=== PATIENT | female | born 1985 | race Two or more races ===

== ENCOUNTER 2024-07-18 17:28 | Emergency (ER) | payer MEDICAID, SELFPAY ==
[2024-07-18 17:29] VITALS: BMI 27.2
[2024-07-18 18:51] VITALS: BP 150/89; PULSE 71; RESP 17; TEMP 36.7; O2SAT 96
--- NOTE | 2024-07-18 18:52 | PD.EDWOUND ---
ED Wound/Laceration-RME/HPI General Chief Complaint: Wound/Laceration Stated Complaint: Laceration to right hand at home while cooking Time Seen by Provider: 07/18/24 18:22 Arrival date/time: 07/18/24 17:28 39 year old female present emergency room with c/o of right hand laceration today. unsure of tetanus status LOCATION: hand SEVERITY: Symptoms are described as being severe with limitations on activities of daily living QUALITY: Symptoms are described as being dull or achy CONTEXT: cut finger while cooking DURATION/TIMING: The symptoms started approximately immediately prior to arrival ago and have been constant this then. ASSOCIATED SYMPTOMS: The patient is unable to identify any other associated symptoms. MODIFYING FACTORS: The patient is unable to identify any alleviating or aggravating symptoms. PERTINENT ROS: no fevers, no headache, no neck or chest pain, no unexplained nausea or vomiting, no focal neurological deficits REVIEW OF SYSTEMS: See History of Present Illness - with the exception of those mentioned in the history of present illness, all other systems reviewed and reported as negative GENERAL: In general the patient is awake, interactive, in an emergency department gurney. HEAD/EYES/EARS/NOSE/THROAT: normo-cephalic, atraumatic, mucus membranes are moist, anicteric, palpebral conjunctiva is pink, trachea is midline. BACK: normal range of motion without pain. NEUROLOGICAL: cranio-facial features are symmetric, moves all four extremities equally without obvious limitations or weakness. EXTREMITY: right hand palmar aspect 2 cm vertical laceration at base of pinky finger, no tenderness to palpation over the long bones or large joints of the bilateral upper and lower extremities, no joint swelling, no joint erythema, no unilateral leg swelling and no peripheral edema. SKIN: warm, dry, well-perfused, no jaundice, no rash, no telangiectasias or petechia. PSYCH: calm, cooperative, no evidence of psychosis or agitation Related Data Allergies Allergy/AdvReac Type Severity Reaction Status Date / Time No Known Allergies Allergy Verified 02/26/24 03:40 Course Course Course Narrative: Patient is admitted to the Emergency Department and evaluated. Patient appears well, is non-toxic and well hydrated. The wound is sutured. No signs of tendon or neurovascular involvement. Patient is given wound care and follow up instructions. bulky dressing and irrigation done prior to discharge. Quality Measures none Orders Category Date Time Status Set Up Suture Tray STAT Care 07/18/24 18:53 Active Wound Care X1 Care 07/18/24 18:53 Active Tetanus, Diphtheria Toxoids/Pf [Tenivac-Adult] Med 07/18/24 18:53 Discontinued 0.5 ml IMI .ONCE ONE Vital Signs Vital signs: Vital Signs Temperature 98.1 F 07/18/24 18:51 Pulse Rate 71 07/18/24 18:51 Respiratory Rate 17 07/18/24 18:51 Blood Pressure 150/89 H 07/18/24 18:51 Pulse Oximetry (%) 96 07/18/24 18:51 Oxygen Delivery Method Room Air 07/18/24 18:51 Procedures -ED Laceration Laceration 1: Site: hand Side (If applicable): right Size (cm): 1.5 Description: linear and clean Depth: simple, single layer Local Anesthetic: lidocaine 1% Amount of anesthesia used (mL): 6 Pre-repair: wound explored, irrigated extensively, deep structures intact, extensive debridement and wound margins revised Skin layer closed with: nylon Size (cm): 5-0 Number of sutures: 2 Technique: simple, interrupted and horizontal mattress Wound / Laceration Patient data External records reviewed:: [facility] previous records Clinical information provided by:: patient Social determinants that could affect healthcare access:: none Patient has the following chronic illnesses:: n/a How is presenting disease/condition affected by chronic disease/condition?: no chronic disease Evaluation data The following diagnostics were reviewed and interpreted by me:: other (specify) (n/a ) Lab and/or radiology exams considered but not ordered:: n/a Interpretation Summary: n/a Medications / Prescriptions Medications or Prescriptions considered but not ordered:: n/a Medication administrations:: Medication Administration History Discontinued Medications Tetanus/Diphtheria Toxoids (Tetanus,Diphtheria Toxoids/Pf (Adult) 0.5 Ml Syringe) 0.5 ml IMi .ONCE ONE Stop: 07/18/24 18:54 as stated above Consultations Consultation(s) initiated? (list below): No Diagnosis Wound Differential Diagnosis: laceration, abrasion and avulsion of skin Most likely diagnosis given after review of the tests above:: hand laceration Admission Indicated Admission indicated?: not indicated Admission Request Was there a request for admission?: No Disposition Plan Disposition Plan: Discharge Discharge Attestation Discharge Attestation: The patient and all family members were given an opportunity to ask questions and understood the discharge instructions. Discharge instructions specifically effects, indications for sooner follow up or return to the emergency department, and the expected course of current diagnosis. Patient condition: Stable Discharge Plan Plan Patient Disposition: HOME (Self Care) Health Concerns: Return to ED or PCP in 10-14 days for suture removal Return to ED if symptoms worsen Problem List Clinical Impression: Laceration of hand Patient/Caregiver Discharge Instructions Education Materials: ED Laceration, Hand: All Closures Print Language: Micronesian Stand Alone Forms: Yasmin Award Info., Patient Portal Info Letter
[2024-07-18] MEDS: TETANUS,DIPHTHERIA TOXOIDS/PF (ADULT) 0.5 ML SYRINGE IMi (19:42)
== END 2024-07-18 20:21 | disposition home or self-care (01) ==
LOC: SERX 19:51
PROVIDERS: Emergency Provider Emergency Medicine
DX: S61.411A Laceration without foreign body of right hand, initial encounter (principal); W45.8XXA Other foreign body or object entering through skin, initial encounter; Y93.G3 Activity, cooking and baking; Z23 Encounter for immunization; Y92.000 Kitchen of unspecified non-institutional (private) residence as the place of occurrence of the external cause
CPT/HCPCS: 12001; 90471; 90714; 99283

== ENCOUNTER 2025-04-25 17:45 | Emergency (ER) | payer MEDICAID, SELFPAY ==
[2025-04-25 17:56] VITALS: BP 119/79; PULSE 70; RESP 20; TEMP 36.8; O2SAT 96; BMI 30.2
--- NOTE | 2025-04-25 18:28 | EDNOTE_ITS ---
ED Abdominal Pain RME/HPI General Chief Complaint: Abdominal Pain Stated complaint: ABD PAIN, LOWER BACK/HIP PAIN Time seen by provider: 04/25/25 18:18 Arrival date/time: 04/25/25 17:45 Source: patient, RN notes reviewed and old records reviewed Mode of arrival: ambulatory Limitations: no limitations RME / HPI RME / HPI narrative: 39yof presents to ED for dysuria and bilateral flank pain radiating to lower abdomen that started today. Patient c/o nausea and x3 episodes of vomiting since onset. Patient went to clinic this morning and PCP prescribed Pyridium and Macrobid, patient has taken 1 dose. No medications or treatments for pain reported. No fever, hematuria or vaginal discharge reported. Related Data Previous Rx's ?Medication ?Instructions ?Recorded ibuprofen 600 mg tablet 600 mg PO Q6H PRN pain #30 t abs 04/25/25 ondansetron 4 mg disintegrating 4 mg PO Q6H PRN nausea and 04/25/25 tablet vomiting #10 tabs Allergies Allergy/AdvReac Type Severity Reaction Status Date / Time No Known Allergies Allergy Verified 04/25/25 17:50 Review of Systems Review of Systems Systems Reviewed: All systems reviewed, normal except as documented Constitutional Constitutional: Denies fever(s) Gastrointestinal Gastrointestinal: Reports abdominal pain, Reports nausea and Reports vomiting Genitourinary Genitourinary: Reports dysuria, Reports flank pain, Denies hematuria and Denies vaginal discharge Past Medical History Past Medical History GASTROINTESTINAL: Positive Obesity Surgical History SURGICAL: Positive Tubal Ligation Social History SMOKING STATUS: Never smoker SUBSTANCE USE: does not use ALCOHOL: Never ED Exam General Limitations: Present no limitations General appearance: Present alert and in no apparent distress Head Head exam: Present atraumatic and normocephalic Eye Eye exam: Present normal appearance, PERRL and EOMI ENT ENT exam: Present normal exam and mucous membranes moist Neck Neck exam: Present normal inspection and full ROM Chest Chest inspection: Present normal inspection and symmetric chest wall rise Respiratory Respiratory exam: Present normal lung sounds bilaterally; Absent respiratory distress Cardiovascular Cardiovascular exam: Present regular rate and normal rhythm Abdominal Exam Abdominal exam: Present soft; Absent distention, tenderness, guarding or rebound Extremities Exam Extremities exam: Present normal inspection and full ROM Back Exam Back exam: Absent CVA tenderness (R) or CVA tenderness (L) Neurological Exam Neurological exam: Present alert and oriented X3 Psychiatric Psychiatric exam: Present normal affect and normal mood Skin Skin exam: Present warm, dry and intact Course Quality Measures none Orders Category Date Time Status CT abdomen pelvis wo con Stat Exams 04/25/25 19:26 Completed CBC Stat Lab 04/25/25 18:34 Completed CMP [Comprehensive Metabolic Panel] Stat Lab 04/25/25 18:34 Completed HCG Qualitative,Urine Stat Lab 04/25/25 18:45 Completed Lipase Stat Lab 04/25/25 18:34 Completed UA [Urinalysis] Stat Lab 04/25/25 18:45 Completed Urine Culture Stat Lab 04/25/25 18:45 Completed HYDROcodone*/APAP 5/325 [[place] 5/325] Med 04/25/25 18:27 Discontinued 1 tab PO X1 ONE Ketorolac Inj [Toradol Inj] Med 04/25/25 18:27 Discontinued 30 mg IM X1 ONE Ondansetron Odt [Zofran Odt] Med 04/25/25 18:27 Discontinued 4 mg PO X1 ONE Vital Signs Vital signs: Vital Signs Temperature 98.3 F 04/25/25 17:56 Pulse Rate 70 04/25/25 17:56 Respiratory Rate 20 04/25/25 17:56 Blood Pressure 119/79 04/25/25 17:56 Pulse Oximetry (%) 96 04/25/25 17:56 Oxygen Delivery Method Room Air 04/25/25 17:56 Abdominal Pain MDM MDM Narrative MDM Narrative:: 39yof presents to ED for dysuria and bilateral flank pain radiating to lower abdomen that started today. Patient c/o nausea and x3 episodes of vomiting since onset. Patient went to clinic this morning and PCP prescribed Pyridium and Macrobid, patient has taken 1 dose. No medications or treatments for pain reported. No fever, hematuria or vaginal discharge reported. ED workup unremarkable. No evidence of UTI, pyelo, ureteral stone. Encouraged rest, fluids, symptomatic treatment prn. Follow up with pcp if symptoms persist. Stable for dc, RTED precautions given. Patient data External records reviewed:: [facility] previous records (07/18/24 ED visit for hand laceration) Clinical information provided by:: patient Social determinants that could affect healthcare access:: other (specify) (unemployed) Patient has the following chronic illnesses:: obesity How is presenting disease/condition affected by chronic disease/condition?: uneffected by Evaluation data The following diagnostics were reviewed and interpreted by me:: lab results and radiology exam(s) Lab and/or radiology exams considered but not ordered:: none Interpretation Summary: No leukocytosis No anemia No UTI (+squamous cells c/w contamination) No CLEO CT abd/pelvis IMPRESSION: 2 mm nonobstructing right renal calculus No hydronephrosis or ureteral calculi No bladder mass or bladder calculi Normal appendix Dictated By: Rizwan Regalado MD Medications / Prescriptions Medications or Prescriptions considered but not ordered:: no antibiotics recommended at this time Medication administrations:: Medication Administration History Discontinued Medications Hydrocodone Bitart/Acetaminophen (Hydrocodone/Apap 5/325 Tablet) 1 tab PO X1 ONE Stop: 04/25/25 18:28 Last Admin: 04/25/25 19:59 Dose: 1 tab Documented By: JANETH Ketorolac Tromethamine (Ketorolac Inj 30 Mg/Ml Vial) 30 mg IM X1 ONE Stop: 04/25/25 18:28 Last Admin: 04/25/25 20:00 Dose: 30 mg Documented By: JANETH Ondansetron HCl (Ondansetron Odt 4 Mg Tabrap) 4 mg PO X1 ONE; Protocol Stop: 04/25/25 18:28 Last Admin: 04/25/25 20:00 Dose: 4 mg Documented By: JANETH above medications administered in ED Consultations Consultation(s) initiated? (list below): No Diagnosis Differential diagnosis abdominal pain: abdominal pain, acute appendicitis, calculus of kidney, constipation, gastroenteritis, small bowel obstruction and other (flank pain, UTI, pyelo, ovarian cyst) Most likely diagnosis given after review of the tests above:: flank pain Admission Indicated Admission indicated?: not indicated Admission Request Was there a request for admission?: No Disposition Plan Disposition Plan: Discharge Discharge Attestation Discharge Attestation: The patient and all family members were given an opportunity to ask questions and understood the discharge instructions. Discharge instructions specifically effects, indications for sooner follow up or return to the emergency department, and the expected course of current diagnosis. Patient condition: Stable Discharge Plan Plan Patient Disposition: HOME (Self Care) Patient condition on transfer: Stable Prescriptions/Referrals Prescriptions/Med Rec: New ondansetron 4 mg tablet,disintegrating 4 mg PO Q6H PRN (Reason: nausea and vomiting) Qty: 10 0RF ibuprofen 600 mg tablet 600 mg PO Q6H PRN (Reason: pain) Qty: 30 0RF Referrals: Evan Vigil MD [Primary Care Provider, Family Practice] - In 1 week Problem List Clinical Impression: Bilateral flank pain Patient/Caregiver Discharge Instructions Education Materials: ED Flank Pain, Uncertain Cause Print Language: French Stand Alone Forms: Yasmin Award Info., Patient Portal Info Letter PA/[employer] MECHANIC Supervising Physician PA/[employer] MECH[employer]IC Supervising Physician: Alfredo
[2025-04-25 18:40] LABS: Basophils # (Auto) 0.0 Thou/mm3 (0.0-0.2); Basophils % (Auto) 0 % (0-2.5); Eosinophils # (Auto) 0.1 Thou/mm3 (0.0-0.5); Eosinophils % (Auto) 1 % (0-10); Hematocrit 39.4 % (36.0-46.0); Hemoglobin 13.5 g/dL (12.0-16.0); Immature Granulocytes Auto 0.01 Thou/mm3 (0.00-0.00); Lymphocytes # (Auto) 1.9 Thou/mm3 (1.0-4.8); Lymphocytes % (Auto) 25 % (10-50); Mean Corpuscular HGB Conc 34.3 g/dl (31.0-37.0); Mean Corpuscular Hemoglobin 28.9 pg (25.0-35.0); Mean Corpuscular Volume 84 fL (80-100); Monocytes # (Auto) 0.4 Thou/mm3 (0.0-0.8); Monocytes % (Auto) 5 % (0-12); Neutrophils # (Auto) 5.3 Thou/mm3 (1.8-7.7); Neutrophils % (Auto) 69 % (37-80); Nucleated Red Blood Cell # 0.00 Thou/mm3 (0.00-0.00); Nucleated Red Blood Cell % 0 /100 WBC (0); Platelet Count 225 Thou/mm3 (140-440); RDW Standard Deviation 35.9 fL (36.4-46.3); Red Blood Count 4.67 Miln/mm3 (4.00-5.20); White Blood Count 7.6 Thou/mm3 (3.6-11.0)
[2025-04-25 19:01] LABS: Alanine Aminotransferase 75 U/L (10-49); Albumin, Serum 4.5 gm/dL (3.5-5.0); Albumin/Globulin Ratio 1.5 (1.2-2.2); Alkaline Phosphatase 83 U/L (46-116); Anion Gap 8 (7-16); Aspartate Amino Transferase 42 U/L (0-34); BUN/Creatinine Ratio 18 Ratio (12-20); Bilirubin,Total 0.6 mg/dL (0.3-1.2); Blood Urea Nitrogen 14 mg/dL (9-23); Calcium 9.8 mg/dL (8.3-10.6); Calcium (Corrected) 9.8 mg/dL (8.5-10.1); Carbon Dioxide 27.7 mMol/L (20.0-31.0); Chloride 102 mMol/L (98-107); Creatinine (Component) 0.8 mg/dL (0.6-1.3); Estimated Creatinine Clearance 84.2 mL/min (>60); Globulin 3.1 gm/dL (2.3-3.5); Glucose 173 mg/dL (74-106); Lipase 41 U/L (12-53); Osmolality,Calculated 280 (275-295); Potassium 3.5 mMol/L (3.4-5.1); Sodium 138 mMol/L (136-145); Total Protein 7.6 gm/dL (5.7-8.2); eGFR > 60 See Note
[2025-04-25 19:11] LABS: Collection Type, Urine Clean Catch
[2025-04-25 19:17] LABS: HCG Qualitative,Urine Negative
[2025-04-25 19:22] LABS: Amorphous Crystals,Urine Present (Absent); Bilirubin,Urine 1+ (Negative); Blood,Urine Negative (Negative); Clarity,Urine Turbid (Clear/Hazy); Color,Urine Dark-Brown (Lt Yel-Yel); Glucose, Urine 1+ (Negative); Ketones,Urine Negative (Negative); Leukocyte Esterase,Urine Negative (Negative); Nitrite,Urine Positive (Negative); PH,Urine 5.5 (5.0-7.0); Protein,Urine Trace (Neg - Trace); RBC,Urine 2 /hpf (0-3); Specific Gravity,Urine 1.022 (1.001-1.035); Squamous Epithelial Cell,Urine 20 /hpf (0-5); Urobilinogen,Urine 6.0 mg/dL (0.0-1.0); WBC,Urine 5 /hpf (0-5)
--- NOTE | 2025-04-25 19:26 | XR_ITS ---
Examination: CT abdomen and pelvis without contrast. Coronal 3-D reconstructions. Sagittal 2-D reconstructions. Date and time of exam: April 25, 20252009 hours INDICATIONS: Left flank pain left abdominal pain CTDI: vol (mGy): 8.33 DLP: (mGycm): 443 Technique: Axial images of the abdomen have been obtained, 3 mm slice thickness Intravenous contrast material has not been administered. Low dose protocols were performed. One or more of the following dose reduction techniques were used; automated exposure control, adjustment of the mA and/or KV according to patient size, use of iterative reconstruction technique. Findings: No visualized liver or splenic lesion Absent gallbladder No common bile duct stones No pancreatic mass 2 mm mid pole right renal calculus, coronal image 96 No hydronephrosis or ureteral calculi Normal appendix No bowel obstruction or diverticulitis No pelvic mass Contracted urinary bladder, no bladder mass or bladder calculi Osseous structures intact IMPRESSION: 2 mm nonobstructing right renal calculus No hydronephrosis or ureteral calculi No bladder mass or bladder calculi Normal appendix
[2025-04-25] MEDS: HYDROcodone/APAP 5/325 TABLET 1 TAB PO (19:59)
[2025-04-25] MEDS: KETOROLAC INJ 30 MG/ML VIAL IM (20:00)
[2025-04-25] MEDS: ONDANSETRON ODT 4 MG TABRAP PO (20:00)
== END 2025-04-25 21:29 | disposition home or self-care (01) ==
PROVIDERS: Physician Assistant; Emergency Provider Emergency Medicine; PCP Family Medicine
DX: N20.0 Calculus of kidney (principal); R10.A3 Flank pain, bilateral; R11.2 Nausea with vomiting, unspecified
CPT/HCPCS: 36415; 74176; 80053; 81001; 81025; 83690; 85025; 87086; 96372; 99283; J1885; Q0162; A9270